=== PATIENT | male | born 1990 | race Caucasian/White ===

== ENCOUNTER 2020-04-10 08:27 | Outpatient (CLI) | payer BC, SELFPAY ==
--- NOTE | 2020-04-10 | ECG_ITS ---
Measurements Intervals [place] Rate: 76 P: 70 WV: 187 QRS: -68 QRSD: 121 T: 75 QT: 411 QTc: 464 Interpretive Statements SINUS RHYTHM RSR' IN V1 OR V2, CONSIDER RIGHT VENTRICULAR HYPERTROPHY OR RIGHT VCD LEFT ANTERIOR FASCICULAR BLOCK LEFT VENTRICULAR HYPERTROPHY AND ST-T CHANGE ABNORMAL ECG Electronically Signed On 04-10-2020 9:00:36 RN PERITONEAL DIALYSIS by Agus Verde D.O.
--- NOTE | 2020-04-10 | ECHO_ITS ---
Patient Info Name: Moshe Ngo Age: 29 years : 1990 Gender: Male Ht: 72 in Wt: 130 lbs BSA: 1.71 m2 HR: 72 bpm BP: 144 / 99 mmHg Technical Quality: Good Exam Date: 04/10/2020 9:09 AM Exam Location: [facility] Patient Status: Outpatient Admit Date: 04/10/2020 Staff Ordering Physician: EricaJessica PA-C Drill Press Operator Helper: Radha Russo RDCS Attending Provider: JustinJessica PA-C Exam Type: CA echo doppler color flow Study Info Indications - syncope hx/o CHD unknown Complete two-dimensional, color flow and Doppler transthoracic echocardiogram is performed. History/Risk Factors Congenital Heart Disease (CHD): Yes History/Risk Factors Congenital. Summary 1. Complete two-dimensional, color flow and Doppler transthoracic echocardiogram is performed. 2. Left ventricular chamber dimension is mildly enlarged. 3. Left ventricular systolic function is normal, estimated at 60-65%. 4. The left ventricular diastolic function is normal. 5. E/e' 9 is minimally elevated. 6. Left atrial chamber dimension is mildly enlarged. 7. There is mild mitral valve regurgitation. 8. There is mild tricuspid valve regurgitation. 9. No pulmonary hypertension, estimated pulmonary arterial systolic pressure is 26 mmHg. 10. There is trace pulmonic regurgitation. Left Ventricle E/e' 9 is minimally elevated. Left ventricular chamber dimension is mildly enlarged. Left ventricular systolic function is normal, estimated at 60-65%. The left ventricular diastolic function is normal. Right Ventricle Right ventricular chamber dimension is normal. Right ventricular systolic function is normal. Left Atria Left atrial chamber dimension is mildly enlarged. Right Atria Right atrial chamber dimension is normal. Aortic Valve The aortic valve is trileaflet. There is no aortic valve stenosis. There is no aortic valve regurgitation. Pulmonic Valve There is trace pulmonic regurgitation. Mitral Valve There is no mitral valve stenosis. There is mild mitral valve regurgitation. Tricuspid Valve There is mild tricuspid valve regurgitation. No pulmonary hypertension, estimated pulmonary arterial systolic pressure is 26 mmHg. Pericardium/Pleural There is no pericardial effusion. Inferior Vena Cava Normal inferior vena cava with >50% collapse upon inspiration consistent with normal right atrial pressure, 5 mmHg. Aorta The aortic root size at the sinus of Valsalva is normal. Left Ventricular Outflow Tract Name Value Normal LVOT 2D LVOT Diameter 2.4 cm LVOT Doppler LVOT Peak Gradient 9 mmHg LVOT Mean Gradient 5 mmHg LVOT VTI 23 cm LVOT VTI/AV VTI Ratio 0.9 LVOT Stroke Volume 108 ml LVOT CO 28.8 l/min LVOT CI 16.8 l/min/m2 Pulmonic Valve Name Value Norm
== END 2020-04-10 08:28 | disposition home or self-care (01) ==
PROVIDERS: PCP Physician Assistant; Visit Provider Physician Assistant
DX: R55 Syncope and collapse (principal); I44.4 Left anterior fascicular block
CPT/HCPCS: 93005; 93306

== ENCOUNTER 2021-02-16 12:51 | Outpatient (CLI) | payer BC, SELFPAY ==
--- NOTE | 2021-02-17 09:24 | WPDNEUROLOGY ---
Neurology EEG Report TEST EEG DIAGNOSIS seizures CONDITION OF RECORDING awake drowsy and sleep EEG NUMBER [id number] CLINICAL HISTORY patient reported about every 4 months he has an episode of confusion not remembering what happened and losing control of bladder and bowels a couple of times there is no family history of seizures EEG DESCRIPTION basic resting occipital frequency consists of large amount of low to medium voltage 9 to 10 hertz per 2nd alpha admixed with low-voltage 15 to 18 hertz per 2nd beta. Low-voltage beta activity seen diffusely admixed with waxing and waning posterior alpha rhythm. Bilateral symmetrical sleep activity seen during sleep. Photic stimulation produced normal drive. Hyperventilation not done. Non paroxysmal. Nonfocal. Nonlateralizing. IMPRESSION Normal record. clinical correlation recommended. Possibility of partial complex seizure or localization-related epilepsy is likely with secondary generalization and the routine EEG can be normal.
== END 2021-02-16 12:52 | disposition home or self-care (01) ==
PROVIDERS: PCP Physician Assistant; Visit Provider Physician Assistant
DX: R56.9 Unspecified convulsions (principal)
CPT/HCPCS: 95816

== ENCOUNTER 2022-02-11 16:40 | Inpatient (IN) | payer BC, MEDICAID, SELFPAY ==
--- NOTE | ~2022-02-11 | XR_ITS ---
EXAMINATION: XR chest 2V DATE: 02/11/2022 17:00 INDICATION: Shortness of breath TECHNIQUE: PA and lateral views of the chest are obtained. COMPARISON: None available FINDINGS: The lungs are free of acute opacities. There is a large left pneumothorax with near complet e collapse of the left lung. There is mild rightward deviation of the heart and mediastinal structure s. The heart size is normal. Small sternal sutures are consistent with pediatric cardiac surgery. The visualized osseous structures are unremarkable. IMPRESSION: 1. Large left pneumothorax with collapse of the left lung and mild rightward shift of the mediastinal structures. These findings were discussed with ANIKA Dean in the Emergency Department at 1705 hours on 02/11/2022. Reviewed, dictated and finalized at location F. IMPRESSION: 1. Large left pneumothorax with collapse of the left lung and mild rightward sh ift of the mediastinal structures. These findings were discussed with Glenn Dean in the Emergency Department at 1705 hours on 02/11/2022.
--- NOTE | ~2022-02-11 | XR_ITS ---
EXAMINATION: XR chest-chest tube insert/pos INDICATION: Chest tube insertion TECHNIQUE: Portable AP chest at 1819 hours COMPARISON: 1658 hours FINDINGS: A left-sided chest tube has been inserted which ends with its tip in the medial left hemith orax. A small left apical pneumothorax persists. There is a moderate volume of subcutaneous gas in th e left chest wall. The left lung is reexpanded. There is mild atelectasis of the left lung. The right lung is clear. The heart size is normal. Small sternal sutures are consistent with pediatric cardiac surgery. IMPRESSION: 1. Left-sided chest tube inserted with small persistent left apical pneumothorax. Reviewed, dictated and finalized at location F. IMPRESSION: 1. Left-sided chest tube inserted with small persistent left apical pneumothora x.
--- NOTE | ~2022-02-11 | XR_ITS ---
EXAMINATION: XR chest 1V portable DATE: 02/13/2022 08:21 INDICATION: Left pneumothorax TECHNIQUE: frontal view of the chest was obtained. COMPARISON: Chest radiograph dated 02/12/2022 FINDINGS: Slight decrease in size of a small left pneumothorax primarily at the apex and along the superior med iastinum. Apically directed left chest tube remains in place. Mild superior pneumomediastinum. No sig nificant change in overlying subcutaneous emphysema obtained lateral left hemithorax extending into t he axilla and base of the left neck. No airspace opacities, pulmonary edema, pleural effusion or righ t pneumothorax. Heart size is normal. Enlargement of the main pulmonary artery suggesting pulmonary a rterial hypertension. Small median sternotomy wires suggesting childhood cardiothoracic surgery. IMPRESSION: 1. Apically directed left chest tube remains in place with slight decrease in a small left pneumothor ax. 2. Enlargement of the main pulmonary artery which can be seen with pulmonary arterial hypertension. Reviewed, dictated and finalized at location A. IMPRESSION: 1. Apically directed left chest tube remains in place with slight decrease in a small left pneumothorax. 2. Enlargement of the main pulmonary artery which can be seen with pulmonary ar terial hypertension.
--- NOTE | ~2022-02-11 | XR_ITS ---
EXAMINATION: XR chest-chest tube insert/pos INDICATION: Chest tube repositioning TECHNIQUE: Portable AP chest at 1916 hours COMPARISON: 02/11/2022 FINDINGS: The chest tube has been slightly retracted. Its tip now lies slightly more laterally in the left hemithorax. There is a small persistent left apical pneumothorax. Pneumomediastinum is noted. T here is and subcutaneous gas in the left lateral chest wall. The heart size is normal. There is no pl eural effusion. There is mild atelectasis in the left lung. IMPRESSION: 1. Repositioned left chest tube ending slightly more laterally in the left hemithorax. Small, persist ent left pneumothorax. 2. Minimal pneumomediastinum. Reviewed, dictated and finalized at location F. IMPRESSION: 1. Repositioned left chest tube ending slightly more laterally in the left marcus thorax. Small, persistent left pneumothorax. 2. Minimal pneumomediastinum.
--- NOTE | ~2022-02-11 | XR_ITS ---
EXAMINATION: XR chest 1V portable DATE: 02/13/2022 12:38 INDICATION: Follow-up post chest tube removal TECHNIQUE: A pair of portable upright AP views of the chest were obtained at 11:07 AM and 12:33 PM fo llowing chest tube removal COMPARISON: Chest radiograph dated 02/13/2022 at 8:07 AM FINDINGS: Left chest tube has been removed. No interval change in a small left pneumothorax. Lungs are clear wi th no airspace opacities, pulmonary edema, pleural effusion or right-sided pneumothorax. Heart size i s normal flow with increased prominence to the convexity along the right heart border corresponding t o the main pulmonary artery which can be seen with pulmonary arterial hypertension. Persistent small amount of pneumomediastinum and extensive chest wall soft tissue gas extending to the left neck relat ed to earlier chest tube placement. Small median sternotomy wires suggesting childhood cardiac thorac ic surgery. Correlate with surgical history. IMPRESSION: 1. No change in pneumomediastinum and small small left pneumothorax post chest tube removal. 2. Enlargement of the main pulmonary artery consistent with pulmonary arterial hypertension. Reviewed, dictated and finalized at location A.
--- NOTE | ~2022-02-11 | CT_ITS ---
EXAMINATION: CT diagnostic chest wo con DATE: 02/11/2022 18:49 INDICATION: Shortness of breath, pneumothorax, chest tube placement TECHNIQUE: Computed tomography (CT) of the chest was performed without intravenous contrast. The dose -length product (DLP) was 145.53 mGy-cm. Automated exposure control and iterative reconstruction tech Shompton were employed. COMPARISON: None FINDINGS: There is a small left pneumothorax. A left-sided chest tube courses anteriorly in the thora x and ends with its tip abutting the anterior mediastinal fat adjacent to the right ventricle. There is no pleural effusion. There is mild atelectasis of the left lung. There is a moderate amount of sub cutaneous emphysema in the left chest wall. Pneumomediastinum is also noted. The heart size is normal . There are no pathologically enlarged thoracic lymph nodes. Small wire sternal sutures are consisten t with pediatric cardiac surgery. IMPRESSION: 1. Small left pneumothorax with left-sided chest tube coursing anteriorly and ending with its tip abu tting the anterior mediastinal fat adjacent to the right ventricle. 2. Pneumomediastinum. 3. Subcutaneous gas in the left chest wall consistent with chest tube insertion. Reviewed, dictated and finalized at location F. IMPRESSION: 1. Small left pneumothorax with left-sided chest tube coursing anteriorly and e nding with its tip abutting the anterior mediastinal fat adjacent to the right ventricle. 2. Pneumomediastinum. 3. Subcutaneous gas in the left chest wall consistent with chest tube insertion .
--- NOTE | ~2022-02-11 | XR_ITS ---
EXAMINATION: XR chest 1V portable DATE: 02/12/2022 06:36 INDICATION: Left pneumothorax. TECHNIQUE: A single frontal view of the chest was obtained. COMPARISON: Chest single view 02/11/2022 FINDINGS: There is a small left pneumothorax. There is a chest tube in expected position. Pneumomedia stinum is noted. There is gas in the left neck and left chest wall. There are lucencies in the lungs, consistent with emphysema. There is mild atelectasis in left lower lung zone. No pleural effusion. C ardiomegaly is noted. Median sternotomy wires are noted. IMPRESSION: 1. Stable small left pneumothorax with chest tube in expected position. 2. Persistent pneumomediastinum. 3. Emphysema. 4. Cardiomegaly. Reviewed, dictated and finalized at location A.
--- NOTE | ~2022-02-11 | XR_ITS ---
EXAMINATION: XR abdomen obstructive series DATE: 02/13/2022 08:21 INDICATION: Diarrhea TECHNIQUE: Frontal supine and upright views of the abdomen were obtained. COMPARISON: None. FINDINGS: Moderate amount of gas scattered throughout nondilated large and small bowel. No dilated loops of gas -filled bowel to suggest obstruction. No free intraperitoneal gas. Subcutaneous emphysema along the l ateral left chest wall likely related to a partially visualized apically directed left chest tube. Me bridgette sternotomy wires. Minimal lumbar levocurvature. IMPRESSION: 1. No free intraperitoneal gas or dilated gas-filled loops of bowel to suggest obstruction. Reviewed, dictated and finalized at location A.
[2022-02-11 16:42] VITALS: BP 147/105; PULSE 99; RESP 20; TEMP 36.8; O2SAT 97
[2022-02-11 17:30] LABS: Basophils Absolute Auto 0.1 K/mm3 (0.0-0.1); Basophils Percent Auto 0.4 % (0.2-1.2); Eosinophils Percent Auto 0.1 % (0-4.4); Hemoglobin 16.5 g/dL (14.0-18.0); Immature Granulocyte Absolute 0.04 K/mm3 (0.00-0.031); Immature Granulocyte Percent A 0.3 % (0-0.5); Lymphocytes Absolute Auto 2.02 K/mm3 (0.9-3.2); Lymphocytes Percent Auto 14.3 % (18.3-44.2); Mean Corpuscular HGB Conc 35.1 g/dl (32-36); Mean Corpuscular Volume 91.3 fl (80-100); Mean Platelet Volume 9.5 fl (7.4-10.4); Monocytes Absolute Auto 1.5 K/mm3 (0.1-0.6); Monocytes Percent Auto 10.3 % (2.6-8.5); Neutrophils Absolute Auto 10.6 K/mm3 (1.3-6.7); Neutrophils Percent Auto 74.6 % (45.5-73.1); Platelet Count Result 279 k/mm3 (150-375); Red Blood Count 5.15 M/mm3 (4.6-6.20); Red Cell Distribution Width 12.7 % (11.5-14.5); White Blood Count 14.2 K/mm3 (4.5-10.0)
[2022-02-11] MEDS: MORPHINE SULFATE (*CRX) 4 MG/ML INJ IV PUSH ×2 (17:31→21:59)
[2022-02-11 17:33] VITALS: BP 135/100; PULSE 90; RESP 20; O2SAT 95
[2022-02-11 17:39] LABS: Alanine Aminotransferase 14 U/L (6-50); Albumin Level 4.6 g/dL (3.5-5.1); Alkaline Phosphatase 106 U/L (38-126); Anion Gap 12 mmol/L (8-16); Aspartate Amino Transferase 18 U/L (17-59); Bilirubin,Total 0.7 mg/dL (0.2-1.3); Blood Urea Nitrogen 5 mg/dL (9-20); Calcium 9.7 mg/dL (8.4-10.2); Carbon Dioxide 27 mmol/L (22-30); Chloride 98 mmol/L (98-107); Estimated CRCL calculation 119 ml/min; Estimated Glomerular Filt Rate > 60; Glucose 125 mg/dL (65-110); Sodium 137 mmol/L (137-145)
[2022-02-11 17:41] LABS: Prothrombin Time 13.2 Seconds (11.1-14.7)
[2022-02-11 17:42] LABS: Partial Thromboplastin Time 30.1 SECONDS (22.3-36.8)
[2022-02-11] MEDS: MORPHINE SULFATE (*CRX) 4 MG/ML INJ (18:22)
--- NOTE | 2022-02-11 18:40 | ED.GENADULT ---
HPI - General Adult General Chief complaint: Shortness of Breath/Dyspnea Stated complaint: possible collapsed lung? Time Seen by Provider: 02/11/22 16:53 Source: RN notes reviewed History of Present Illness HPI narrative: Patient presents emergency department from home for left pneumothorax. Patient states that 2 days ago he was eating some food and drinking a beer when he began to have some coughing he states since that time he has been coughing persistently having some shortness of breath he states that he had gone this morning [facility] was found to have a left pneumothorax at that time they want to place a chest tube but he had refused and left AMA he had then gone to [facility] where he had been waiting to be seen by a physician but had a low prior to being seen by physician states he came in here because he decided it was time to get a chest tube and would like further evaluation he denies any fevers or chills abdominal pain nausea or vomiting states he does smoke cigarettes and marijuana Related Data Allergies Allergy/AdvReac Type Severity Reaction Status Date / Time No Known Allergies Allergy Verified 02/11/22 17:32 Review of Systems Review of Systems: Gen.: Denies fevers or chills ENT: Denies congestion Respiratory: See HPI CV: Denies chest pain or palpitations GI: Denies abdominal pain nausea, emesis or diarrhea Musculoskeletal: Denies back pain or muscle pain Neuro: Denies numbness, tingling, weakness or focal weakness Skin: Denies rash Except as documented, all other systems reviewed and negative [facility] Past Medical History Medical History (Updated 02/11/22 @ 20:08 by Nadeem Cervantes DO) No significant past medical history Social History Social History (Updated 02/11/22 @ 18:41 by Nadeem Cervantes DO) Smoking status: Current every day smoker Substance use type: marijuana Exam Narrative: APPEARANCE: No acute distress, nontoxic, resting in bed EYES: EOMI HEENT: Normocephalic, atraumatic, OMM RESPIRATORY: No respiratory distress no breath sounds on left lungs normal breath sounds on right lung. CARDIOVASCULAR: Regular rate and rhythm without murmurs rubs or gallops. ABDOMINAL: Soft, nontender, nondistended, no rebound or guarding MUSCULOSKELETAl: Moves all extremities. No clubbing, cyanosis or edema. NEURO: Awake and alert. Following commands, speech normal, no focal deficits SKIN:: Warm, dry. No rashes lesions or abrasions PSYCHIATRIC: Normal affect/mood, Course Course Emergency Course: Discussed with Dr. Hayden presentation work-up he agrees with admission at this time but does request consult for internal medicine as inpatient. We discussed the patient's chest tube positioning and he does recommend pulling it back 3 cm from 13 cm to 10 cm Patient feeling much better following repositioning of chest. Will update Dr. Hayden following repositioning at this time agrees with admission to his service placed on the floor Discussed with Dr. Sprague agrees with consult Discussed with patient and family results of workup and diagnosis. Discussed need for admission. Patient and family understand and agree to current treatment plan Vital Signs Vital signs: Vital Signs Temperature 98.2 F 02/11/22 16:42 Pulse Rate 99 02/11/22 16:42 Respiratory Rate 20 02/11/22 16:42 Blood Pressure 147/105 H 02/11/22 16:42 Pulse Oximetry 97 02/11/22 16:42 Oxygen Delivery Room Air 02/11/22 16:42 Temperature 97.9 F 02/11/22 21:16 Pulse Rate 71 02/11/22 21:16 Respiratory Rate 24 H 02/11/22 21:16 Blood Pressure 121/91 H 02/11/22 21:16 Pulse Oximetry 97 02/11/22 21:16 Oxygen Delivery Room Air 02/11/22 16:42 Procedures Chest Tube Chest Tube 1: Chest Tube Date: 02/11/22 Chest Tube Location: anterior axillary line and fifth interspace Tube Type: quik thal Chest Tube Prep: Yes betadine prep and sterile drapes applied
--- NOTE | 2022-02-11 19:06 | PC.NURSE ---
Report received from TERRY Leung. Assumed care of patient at this time.
[2022-02-11 19:20] LABS: SARS-CoV-2 RNA PCR Negative
[2022-02-11 19:51] VITALS: BP 141/101; PULSE 79; RESP 20; O2SAT 94
[2022-02-11] MEDS: KETOROLAC 30 MG/ML VIAL (*BKC) IV PUSH (19:58)
[2022-02-11] MEDS: POTASSIUM CHLORIDE 20 MEQ TABLET 40 MEQ PO (20:16)
[2022-02-11 20:45] VITALS: BP 131/70; PULSE 76; RESP 22; O2SAT 96
[2022-02-11 21:16] VITALS: BP 121/91; PULSE 71; RESP 24; TEMP 36.6; O2SAT 97
--- NOTE | 2022-02-11 21:32 | ADMGEN ---
This patient, Moshe Ngo, was admitted to 2 [facility] Room [facility]01 @2130. Patient/family oriented to hospital policies and general routines including ID bracelet, bed and alarms, visiting hours, pain management, procedures, bathroom and other care routines, personal items, smoking policy, room service/diet, and visiting hours. Information on how to activate the Rapid Response Team has been discussed. Patient/Family are encouraged to report perceived risks to care and to ask questions if they do not understand what they are told or what they should do.
[2022-02-11 21:36] VITALS: BMI 15.6
[2022-02-11 21:37] VITALS: BP 140/77; PULSE 78; RESP 18; TEMP 36.9; O2SAT 97
[2022-02-11] MEDS: SODIUM CHLORIDE 0.9% IV 1,000 ML 50 ML IV CONT (21:59)
[2022-02-12] MEDS: HYDROcodone/acetaminophen (*CRX) 5-325 MG TABLET 1 TAB PO ×2 (03:44→17:06)
[2022-02-12 03:52] VITALS: BP 132/85; PULSE 76; RESP 16; TEMP 36.7; O2SAT 100
[2022-02-12 05:30] LABS: Basophils Absolute Auto 0.1 K/mm3 (0.0-0.1); Basophils Percent Auto 0.4 % (0.2-1.2); Eosinophils Absolute Auto 0.2 K/mm3 (0-0.3); Hematocrit 45.6 % (42.0-52.0); Hemoglobin 15.8 g/dL (14.0-18.0); Immature Granulocyte Absolute 0.07 K/mm3 (0.00-0.031); Immature Granulocyte Percent A 0.4 % (0-0.5); Lymphocytes Absolute Auto 1.82 K/mm3 (0.9-3.2); Mean Corpuscular HGB Conc 34.6 g/dl (32-36); Mean Corpuscular Hemoglobin 32.4 pg (26-34); Mean Corpuscular Volume 93.4 fl (80-100); Mean Platelet Volume 9.9 fl (7.4-10.4); Monocytes Absolute Auto 0.9 K/mm3 (0.1-0.6); Monocytes Percent Auto 5.5 % (2.6-8.5); Neutrophils Absolute Auto 13.6 K/mm3 (1.3-6.7); Neutrophils Percent Auto 81.7 % (45.5-73.1); Platelet Count Result 230 k/mm3 (150-375); Red Blood Count 4.88 M/mm3 (4.6-6.20); Red Cell Distribution Width 12.8 % (11.5-14.5); White Blood Count 16.6 K/mm3 (4.5-10.0)
[2022-02-12 05:52] LABS: Alanine Aminotransferase 10 U/L (6-50); Albumin Level 3.9 g/dL (3.5-5.1); Alkaline Phosphatase 94 U/L (38-126); Anion Gap 12 mmol/L (8-16); Aspartate Amino Transferase 22 U/L (17-59); Blood Urea Nitrogen 8 mg/dL (9-20); Calcium 9.1 mg/dL (8.4-10.2); Carbon Dioxide 27 mmol/L (22-30); Chloride 97 mmol/L (98-107); Estimated CRCL calculation 114 ml/min; Estimated Glomerular Filt Rate > 60; Glucose 94 mg/dL (65-110); Magnesium 1.8 mg/dL (1.6-2.3); Potassium 2.6 mmol/L (3.4-5.0); Sodium 136 mmol/L (137-145)
[2022-02-12] MEDS: MAGNESIUM SULF 2 GM/WATER 50ML 2 GM/50 ML BAG IVPB (06:21)
[2022-02-12] MEDS: POTASSIUM CHLORIDE 20 MEQ TABLET 80 MEQ PO (06:22)
--- NOTE | 2022-02-12 07:01 | PM.IMCN ---
Assessment and Plan Assessment and plan (1) Spontaneous pneumothorax: Code(s): J93.83 - Other pneumothorax Status: Acute (2) Acute hypokalemia: Code(s): E87.6 - Hypokalemia Status: Acute (3) Diarrhea: Code(s): R19.7 - Diarrhea, unspecified Status: Acute (4) Continuous tobacco abuse: Code(s): Z72.0 - Tobacco use Status: Acute (5) Complex partial seizure: Code(s): G40.209 - Localization-related (focal) (partial) symptomatic epilepsy and epileptic syndromes with complex partial seizures, not intractable, without status epilepticus Status: Acute (6) Marfanoid habitus: Code(s): R29.91 - Unspecified symptoms and signs involving the musculoskeletal system Status: Acute (7) Marijuana use, continuous: Code(s): F12.90 - Cannabis use, unspecified, uncomplicated Status: Acute Plan Patient has spontaneous pneumothorax. He is but it increased risk of this due to his body habitus. He has marfanoid features. Management per primary service. Chest tube is in place and on suction. Repeat chest x-ray was reviewed. Repeat chest x-ray suggest possible emphysematous changes but emphysematous changes not noted on CT. Emphysematous changes may be suggested just by the patient's long torso and marfanoid appearance looking as if he is hyperinflated on chest x-ray. Patient has hypokalemia likely due to recent diarrhea. Sounds like the patient has somewhat frequent diarrhea due to his dietary choices. Bowel sounds are currently normal and patient's abdomen is nondistended and nontender. Will monitor if recurrent diarrhea consider stool studies. Will replace potassium with 80 mEq p.o. potassium and 40 mEq IV. Will repeat potassium level this afternoon and replace again for goal potassium greater than 3.5. Will also give 2 g magnesium sulfate rider to help with potassium absorption. Patient has a history of seizure disorder the sounds like complex partial seizures. He reports he has been taking his Keppra as directed. The patient continues to rationalize his seizure disorder stating that it must be from his alcohol or marijuana use. But the patient's symptoms and story seemed pretty consistent with partial complex seizure. It is unclear when the patient had his last seizure but it sounds like he has been having seizures fairly frequently and probably should not be driving if his seizures are as frequent as he implies. Given that the patient has had spontaneous pneumothorax in addition to the general risks of smoking if stressed the patient the importance of stopping both tobacco and marijuana use. Patient verbalizes understanding and states that he wants to quit. Dental caries the patient has multiple dental caries. No evidence of abscess or infection currently but the patient does have leukocytosis. I suspect leukocytosis may be reactive due to his delay in care with his pneumothorax of 3 days. Will monitor white count and monitor for signs of infection. DVT prophylaxis and pain management per primary service. HPI Data of Consult Consult date: 02/12/22 Requesting Physician: Bhargav Hayden MD Primary Care Provider: Nida Maldonado, PA-C Consult Narrative Narrative: Moshe Ngo is a 31 year old male with a past medical history of congenital heart disease status post what sounds like VSD repair at the age of 5, seizure disorder, chronic tobacco use, and intermittent alcohol use who presented to the ER from home due to a pneumothorax. The patient had evidently been [facility] earlier in the day and had been noted to have a large left pneumothorax. He reported that his symptoms started 3 days prior when he was eating pizza in drinking beer. He took a deep breath and had sudden left-sided chest pain with associated nonproductive cough. Over the last 3 days he had been having chest pain with breathing and cough. He went to [place] and
[2022-02-12] MEDS: DOCUSATE SODIUM 100 MG CAPSULE PO (08:21)
[2022-02-12] MEDS: ENOXAPARIN 40 MG/0.4 ML SYRINGE SUB-Q (08:21)
[2022-02-12] MEDS: POTASSIUM CHLORIDE 20 MEQ TABLET.ER PO ×2 (08:21→17:37)
[2022-02-12] MEDS: POTASSIUM CHLORIDE INJ 40 MEQ in SODIUM CHLORIDE 0.9% IV 500 ML 130 MEQ IVPB (08:22)
[2022-02-12] MEDS: levETIRAcetam 500 MG TABLET PO ×2 (08:33→20:41)
[2022-02-12 08:41] LABS: Amphetamine Screen Urine Negative (Negative); Barbiturate Screen Urine Negative (Negative); Benzodiazepines Screen Urine Negative (Negative); Cannabinoid Screen Urine Positive (Negative); Cocaine Screen Urine Negative (Negative); Methadone Screen Urine Negative (Negative); Opiate Screen Urine Positive (Negative); Phencyclidine Screen Urine Negative (Negative)
[2022-02-12 12:36] VITALS: BP 121/72; PULSE 72; RESP 20; TEMP 36.8; O2SAT 100
[2022-02-12 15:59] LABS: Potassium 3.8 mmol/L (3.4-5.0)
--- NOTE | 2022-02-12 17:31 | PM.IMPN ---
Progress Note: A&P Assessment and Plan (1) Spontaneous pneumothorax: Code(s): J93.83 - Other pneumothorax Status: Acute Assessment and Plan: Patient presents with SOB and found to have a spontaneous pneumothorax. He is at increased risk due to his body habitus and tobacco use. Chest tube is in place and on suction. Repeat chest x-ray was reviewed showing small left PTX, pneumomediastinum and emphysema. CT management per primary team. (2) Acute hypokalemia: Code(s): E87.6 - Hypokalemia Status: Acute Assessment and Plan: Patient has hypokalemia likely due to recent diarrhea. Frequent diarrhea related to his dietary choices. Potassium and Mag were replaced. Potassium now at 3.8. Continue to follow. (3) Diarrhea: Code(s): R19.7 - Diarrhea, unspecified Status: Acute Assessment and Plan: Patient has frequent diarrhea due to his dietary choices. Abd exam is benign. Will change to high fiber diet. Encouraged healthy lifestyle. Stop colace. check KUB (4) Continuous tobacco abuse: Code(s): Z72.0 - Tobacco use Status: Acute Assessment and Plan: Patient was educated about the benefits of abstaining from tobacco and marijuana use. (5) Complex partial seizure: Code(s): G40.209 - Localization-related (focal) (partial) symptomatic epilepsy and epileptic syndromes with complex partial seizures, not intractable, without status epilepticus Status: Acute Assessment and Plan: Patient has a history of seizure. He is compliant with his Keppra as directed. unclear on how weel controlled his siezures are. He probably should not be driving if his seizures are as frequent as he implies. (6) Marfanoid habitus: Code(s): R29.91 - Unspecified symptoms and signs involving the musculoskeletal system Status: Acute Assessment and Plan: As above (7) Marijuana use, continuous: Code(s): F12.90 - Cannabis use, unspecified, uncomplicated Status: Acute Assessment and Plan: As above Plan DVT prophylaxis; Lovenox Code status: full Diet: regular. Subjective Date/time seen: 02/12/22 17:31 Interval history: 31yo male with hx of seizures and ongoing tobacco use here for shortness of breath and found to have PTX. SOB resolved since chest tube placed. No CP. No pain at chest tube site. Not eating much since he only eats fast food and breakfast. He also needs to have a BM but refuses to use bedpan or bedside commode. He was in 2 hospitals for these symptoms ut signed himself out AMA. One reason was due to stool accident in the ED which has never happened before. He has intermittent diarrhea in the past that he feels is related to the type of foods he eats. Exam Narrative: AF 98.3 121/72 72 20 100% ra Gen - thin male in NARD HEENT - poor dentition Chest - left basilar inspiratory crackles. Left CT secured in the flank to suction. CV - RRR S1/S2 Abd - Soft, NT/ND, Positive BS Ext - No pedal edema Psych - Nml mood but odd affect Skin - Warm and dry Objective Data Vital Signs Vital Signs: Vital Signs - 24 hr 02/11/22 17:33 02/11/22 19:51 02/11/22 20:45 Temperature Pulse Rate 90 79 76 Respiratory Rate 20 20 22 H Blood Pressure 135/100 H 141/101 H 131/70 Pulse Oximetry 95 94 96 Oxygen Delivery 02/11/22 21:16 02/11/22 21:37 02/11/22 22:19 Temperature 97.9 F 98.4 F Pulse Rate 71 78 Respiratory Rate 24 H 18 Blood Pressure 121/91 H 140/77 Pulse Oximetry 97 97 Oxygen Delivery Room Air 02/12/22 03:52 02/12/22 08:22 02/12/22 12:36 Temperature 98.1 F 98.3 F Pulse Rate 76 72 Respiratory Rate 16 20 Blood Pressure 132/85 121/72 Pulse Oximetry 100 100 Oxygen Delivery Room Air Intake/Output Intake/Output: Intake & Output 02/09/22 02/10/22 02/11/22 02/12/22 23:59 23:59 23:59 23:59 Intake Total 390 Balance 390 Meds/Results Medication
--- NOTE | 2022-02-12 18:21 | PM.IMHP ---
H&P: HPI History of Present Illness Date/Time: 02/12/22 15:21 Chief Complaint: left pneumothorax and chest pain Narrative: The patient presented To the [facility] emergency department from home for left pneumothorax on the evening 02/11/2022.? Patient states that 2 days before admission he was eating some food and drinking a beer when he began to have some coughing and then developed chest pain. He states since that time he has been coughing persistently, having some shortness of breath, and he states that he had gone this morning to [facility] and was found to have a left pneumothorax. At that time they wanted to place a chest tube but he had refused and left AMA. He had then gone to [facility] where he had been waiting to be seen by a physician but had a low priority to being seen by that physician & states he came in here because he decided it was time to get a chest tube. He wanted like further evaluation and he denied any fevers or chills,abdominal pain, nausea, or vomiting states he does smoke cigarettes and marijuana. workup here at [facility] showed a large left pneumothorax with almost complete collapse of the left lung. A fall quick catheterization chest tube was placed by Dr. Cervantes in the emergency room and then I was called for follow-up. To the patient's other medical problems I requested that the hospitalist admit him but they would not so I admitted him and ask hospitalist to consult regarding his medical problems. Patient has a history of previous congenital heart disease and apparently a history of seizures. (See hospitalist consultation). Review of Systems Review of Systems: All systems reviewed & are unremarkable except as noted in HPI and below (HPI) Constitutional: Constitutional: Reports as per HPI, Denies chills and Denies fever(s) Eyes: Eyes: Reports no additional eye complaints ENT: Reports Normal hearing present and Denies dizziness Cardiovascular: Cardiovascular: Reports no additional cardiovascular complaints, Denies chest pain and Denies irregular heart rhythm Comments: history of congenital heart disease and surgery at age 5. Respiratory: Respiratory: Reports no additional respiratory complaints Comments: smoker of cigarettes and marijuana. Gastrointestinal: Gastrointestinal: Reports no additional gastrointestinal complaints, Denies abdominal pain and Denies bloating Genitourinary: Genitourinary: Denies hematuria Musculoskeletal: Musculoskeletal: Denies back pain Integumentary/Breasts: Skin/Breast: Reports system reviewed and no additional complaints, except as docu Neurologic: Reports Normal hearing present, Denies Abnormal speech present, Denies confusion and Denies dizziness Comments: History of complex partial seizures on medication. Psychiatric: Psychiatric: Reports no additional psychiatric complaints and Denies confusion Endocrine: Endocrine: Reports no additional endocrine complaints Hematologic/Lymphatic: Hematologic/Lymphatic: Denies easy bleeding and Denies easy bruising Allergic/Immunologic: Allergic/Immunologic: Reports no additional allergic/immunologic complaints [facility] Past Medical History Medical History (Updated 02/12/22 @ 07:49 by Amanda Sprague DO) Complex partial seizure Congenital heart disease With what sounds like a VSD repair with echocardiogram 2020 demonstrating normal structure and function with only trace valvular regurgitation Continuous tobacco abuse Marijuana use, continuous Surgical History Surgical History (Updated 02/12/22 @ 07:49 by Amanda Sprague DO) History of ventricular septal defect repair At age 5 Family History Family History Mother Suicide Depression Social History Social History (Updated 02/12/22 @ 07:51 by Amanda Sprague DO) Social History: He lives in [place] with his girlfriend and their 2-year-old daughter. He
[2022-02-12 19:43] VITALS: BP 125/79; PULSE 78; RESP 18; TEMP 36.8; O2SAT 98
[2022-02-12] MEDS: PSYLLIUM POWDER PACKET 1 PACKET PO (20:41)
[2022-02-12] MEDS: SALINE LOCK FLUSH 2 ML IV PUSH (20:41)
[2022-02-13 04:02] VITALS: BP 122/74; PULSE 72; RESP 18; TEMP 36.4; O2SAT 100
[2022-02-13] MEDS: SALINE LOCK FLUSH 2 ML IV PUSH ×2 (05:07→13:33)
[2022-02-13 05:57] LABS: Basophils Percent Auto 0.4 % (0.2-1.2); Eosinophils Absolute Auto 0.3 K/mm3 (0-0.3); Eosinophils Percent Auto 2.7 % (0-4.4); Hematocrit 40.4 % (42.0-52.0); Hemoglobin 13.8 g/dL (14.0-18.0); Immature Granulocyte Absolute 0.04 K/mm3 (0.00-0.031); Immature Granulocyte Percent A 0.4 % (0-0.5); Lymphocytes Absolute Auto 2.09 K/mm3 (0.9-3.2); Lymphocytes Percent Auto 19.2 % (18.3-44.2); Mean Corpuscular HGB Conc 34.2 g/dl (32-36); Mean Corpuscular Hemoglobin 31.7 pg (26-34); Mean Corpuscular Volume 92.9 fl (80-100); Mean Platelet Volume 9.9 fl (7.4-10.4); Monocytes Absolute Auto 0.8 K/mm3 (0.1-0.6); Monocytes Percent Auto 6.9 % (2.6-8.5); Neutrophils Absolute Auto 7.7 K/mm3 (1.3-6.7); Neutrophils Percent Auto 70.4 % (45.5-73.1); Platelet Count Result 253 k/mm3 (150-375); Red Blood Count 4.35 M/mm3 (4.6-6.20); Red Cell Distribution Width 12.8 % (11.5-14.5); White Blood Count 10.9 K/mm3 (4.5-10.0)
[2022-02-13 06:22] LABS: Anion Gap 10 mmol/L (8-16); Blood Urea Nitrogen 8 mg/dL (9-20); Calcium 8.7 mg/dL (8.4-10.2); Carbon Dioxide 22 mmol/L (22-30); Chloride 104 mmol/L (98-107); Estimated CRCL calculation 114 ml/min; Estimated Glomerular Filt Rate > 60; Glucose 87 mg/dL (65-110); Potassium 3.7 mmol/L (3.4-5.0); Sodium 136 mmol/L (137-145)
[2022-02-13] MEDS: POTASSIUM CHLORIDE 20 MEQ TABLET.ER PO (08:04)
[2022-02-13] MEDS: levETIRAcetam 500 MG TABLET PO (08:04)
[2022-02-13] MEDS: PSYLLIUM POWDER PACKET 1 PACKET PO (08:04)
[2022-02-13] MEDS: ENOXAPARIN 40 MG/0.4 ML SYRINGE SUB-Q (08:04)
--- NOTE | 2022-02-13 10:58 | PM.PNGS ---
Progress Note: A&P Assessment and Plan (1) Pneumothorax on left: Code(s): J93.9 - Pneumothorax, unspecified Status: Acute Assessment and Plan: chest x-ray reviewed in Radiology. Minimal if any apical pneumothorax on the left with current chest tube clamped. Should do well with removal. Chest removed at 11:00 a.m.. Will repeat chest x-ray just afternoon and if all going well consider discharge of patient this afternoon with a secure sealed dressing over chest tube site. Subjective Subjective Date/Time Seen: 02/13/22 10:58 chest x-ray checked earlier today. There was only a small rim of apical Lt.pneumothorax present with chest tube clamped. See plan below Exam Chest: Other: With help of patient's nurse chest tube removed and dressing applied with Vaseline gauze 2 x 2 and Tegaderm. Objective Data Vital Signs Vital Signs: Vital Signs - 24 hr 02/12/22 12:36 02/12/22 19:43 02/12/22 20:00 Temperature 36.8 C 36.8 C Pulse Rate 72 78 Respiratory Rate 20 18 Blood Pressure 121/72 125/79 Pulse Oximetry 100 98 Oxygen Delivery Room Air 02/13/22 04:02 Temperature 36.4 C Pulse Rate 72 Respiratory Rate 18 Blood Pressure 122/74 Pulse Oximetry 100 Oxygen Delivery Intake/Output Intake/Output: Intake & Output 02/10/22 02/11/22 02/12/22 02/13/22 23:59 23:59 23:59 23:59 Intake Total 1840 1000 Output Total 1000 Balance 840 1000 Meds/Results Medications: Active Medications Generic Name Dose Route Start Last Admin Trade Name Lawsonq PRN Reason Stop Dose Admin Acetaminophen 1,000 mg 02/11/22 21:00 Acetaminophen 500 Mg Tablet PO Q6H PRN Mild Pain (1-3) or Fever Hydrocodone Bitart/Acetaminophen 1 tab 02/11/22 20:08 02/12/22 17:06 Hydrocodone/Acetaminophen (*Crx) 5-325 Mg Tablet PO 1 tab Q4H PRN Administration Pain Rated 4-6 Al Hydrox/Mg Hydrox/Simethicone 30 ml 02/11/22 21:00 Mag Hydrox/Al Hydrox/Simeth 30 Ml Udc PO QID PRN Dyspepsia Docusate Sodium 100 mg 02/12/22 18:58 Docusate Sodium 100 Mg Capsule PO BID PRN Constipation Enoxaparin Sodium 40 mg 02/12/22 09:00 02/13/22 08:04 Enoxaparin 40 Mg/0.4 Ml Syringe SUB-Q 40 mg DAILY FARHAD Administration Levetiracetam 500 mg 02/12/22 09:00 02/13/22 08:04 Levetiracetam 500 Mg Tablet PO 500 mg Q12HR FARHAD Administration Magnesium Hydroxide 30 ml 02/11/22 21:00 Magnesium Hydroxide Susp 30 Ml Udc PO DAILY PRN Constipation Morphine Sulfate 4 mg 02/11/22 20:08 02/11/22 21:59 Morphine Sulfate (*Crx) 4 Mg/Ml Inj IV PUSH 4 mg Q4HR PRN Administration Pain Rated 7-10 Naloxone HCl 0.1 mg 02/11/22 21:00 Naloxone Hcl 0.4 Mg/Ml Vial IV PUSH Q2M PRN Opiate Reversal Ondansetron HCl 4 mg 02/11/22 21:00 Ondansetron Inj 4 Mg/2 Ml Vial IV PUSH Q6H PRN Nausea And Vomiting Potassium Chloride 20 meq 02/12/22 08:00 02/13/22 08:04 Potassium Chloride 20 Meq Tablet.Er PO 20 meq BIDWM FARHAD Administration Psyllium Hydrophilic Mucilloid 1 packet 02/12/22 21:00 02/13/22 08:04 Psyllium Powder Packet PO 1 packet Q12HR FARHAD Administration Sodium Chloride 2 ml 02/12/22 22:00 02/13/22 05:07 Saline Lock Flush IV PUSH 2 ml Q8HR FARHAD Administration Radiology Results: ITS Impressions Chest CT 02/11/22 18:50 IMPRESSION: 1. Small left pneumothorax with left-sided chest tube coursing anteriorly and ending with its tip abutting the anterior mediastinal fat adjacent to the right ventricle. 2. Pneumomediastinum. 3. Subcutaneous gas in the left chest wall consistent with chest tube insertion. Chest X-Ray 02/13/22 10:04 IMPRESSION: 1. Apically directed left chest tube remains in place with slight decrease in a small left pneumothorax. 2. Enlargement of the main pulmonary artery which can be seen with pulmonary arterial hypertension. Abdomen X-Ray 02/13/22 10:41 IMPRESS
[2022-02-13] MEDS: HYDROcodone/acetaminophen (*CRX) 5-325 MG TABLET 1 TAB PO (11:10)
[2022-02-13 14:00] VITALS: BP 133/73; PULSE 61; RESP 18; TEMP 36.4; O2SAT 100
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
--- NOTE | 2022-02-13 15:46 | PM.DS ---
DS: Admitting Diagnosis Discharge Date 02/13/2022 left pneumothorax Admitting Diagnosis Left pneumothorax Suspected spontaneous pneumothorax in a young thin male. DS: Discharge Diagnosis Discharge Diagnosis (1) Pneumothorax on left: Code(s): J93.9 - Pneumothorax, unspecified Status: Acute Assessment and Plan: This was the main reason for his admission. See ER note for initial placement of left-sided chest tube (Thal quick cath ). I followed the patient after admission. He was initially left to Pleur-evac and suction for 24 hours. Then the morning of discharge we clamped chest tube after it had been on just water seal with having had no air leak when I saw him on 02/11. Chest x-ray showed no change in the very small apical pneumothorax with chest tube clamped on 02/12. Therefore, chest tube was removed and a chest x-ray repeated 1 hour later showed no change in the size of the very small apical pneumothorax and nicely expanded left lung. It was felt the patient could be discharged. (2) Acute hypokalemia: Code(s): E87.6 - Hypokalemia Status: Acute Assessment and Plan: This was corrected with p.o. potassium. Repeat potassium the day of discharge was in normal range. (3) Congenital heart disease: Code(s): Q24.9 - Congenital malformation of heart, unspecified Status: Acute Assessment and Plan: Addressed only in that we recommended the patient see a belly roller for further follow-up. There were some findings on both chest x-ray and a CT scan done to be sure that there was no injury to the left lung and mediastinum after placement of the chest tube that suggested primary pulmonary hypertension possibly related to his previous congenital heart surgery when he was 5 years old. (4) Diarrhea: Code(s): R19.7 - Diarrhea, unspecified Status: Acute Assessment and Plan: Possibly because the patient eats only pizza cheese burgers and fast food. Basically does not eat any fruits or vegetables. We tried to encourage this while he was in. I also suggested that he take full-dose Metamucil daily or twice a day as this may help solidify his stools. (5) Continuous tobacco abuse: Code(s): Z72.0 - Tobacco use Status: Acute Assessment and Plan: He stated that now that he realizes that smoking would contribute to the possible problems with blebs that could break and give him this pneumothorax he is committed to stop smoking. He will see his PCP and if needed patches will be given or other support to try to stop smoking both cigarettes and marijuana. (6) Complex partial seizure: Code(s): G40.209 - Localization-related (focal) (partial) symptomatic epilepsy and epileptic syndromes with complex partial seizures, not intractable, without status epilepticus Status: Acute Assessment and Plan: Patient apparently has a neurologist at [facility] in [place]. He will follow up with that neurologist and not drive until he is given clearance through his neurologist with regard to his possibly still uncontrolled seizures. DS: Summary Hospital Course Reason for hospitalization: left pneumothorax Hospital Course: The left pneumothorax was the main reason for his admission. See ER note for initial placement of left-sided chest tube (Thal quick cath ). I followed the patient after admission. He was initially left to Pleur-evac and suction for 24 hours. Then the morning of discharge we clamped chest tube after it had been on just water seal with having had no air leak when I saw him on 02/11. Chest x-ray showed no change in the very small apical pneumothorax with chest tube clamped on 02/12. Therefore, chest tube was removed and a chest x-ray repeated 1 hour later showed no change in the size of the very small apical pneumothorax and nicely expanded left lung. It was felt the patient could be discharged. Status at Discharge
== END 2022-02-13 16:35 | disposition home or self-care (01) | DRG 200 ==
LOC: ANHED 20:08 → ANH2MED 21:09
PROVIDERS: Internal Medicine; Admitting Provider Surgery; Emergency Provider Emergency Medicine; PCP Physician Assistant; Visit Provider Surgery
DX: J93.83 Other pneumothorax (principal); G40.209 Localization-related (focal) (partial) symptomatic epilepsy and epileptic syndromes with complex partial seizures, not intractable, without status epilepticus; Z20.822 Contact with and (suspected) exposure to COVID-19; E87.6 Hypokalemia; R19.7 Diarrhea, unspecified; D72.828 Other elevated white blood cell count; K02.9 Dental caries, unspecified; F17.210 Nicotine dependence, cigarettes, uncomplicated; F12.90 Cannabis use, unspecified, uncomplicated; Q24.9 Congenital malformation of heart, unspecified
CPT/HCPCS: 32551; 36415; 71045; 71046; 71250; 74019; 80048; 80053; 80307; 83735; 84132; 85025; 85610; 85730; 96374; 96375; 96376; 99285; A9270; C1729; C9803; J1650; J1885; J2270; J3475; J3480; J7030; J7040; U0003; U0005